=== PATIENT | male | born 1945 | race Caucasian/White ===

== ENCOUNTER → 2022-10-16 | Outpatient (CLI) | payer MEDICARE ==
[~2022-10-16] MED LIST: PROHANCE 279.3MG/ML 15ML VIAL ONE
== END ==
LOC: M PLAIMG 13:52
PROVIDERS: ATTEND Ophthalmology
DX: H53.9 Unspecified visual disturbance (principal)
CPT/HCPCS: 70543; 70553; A9576

== ENCOUNTER → 2023-02-14 | Outpatient (CLI) | payer MEDICARE ==
[~2023-02-14] MED LIST changes: +GASTROGRAFIN SOLUTION 30ML As Ordered ONE; -PROHANCE 279.3MG/ML 15ML VIAL ONE
== END ==
LOC: M RAD 13:19
PROVIDERS: ATTEND Internal Medicine Cardiovascular Disease
DX: I25.10 Atherosclerotic heart disease of native coronary artery without angina pectoris (principal); I73.9 Peripheral vascular disease, unspecified; E78.5 Hyperlipidemia, unspecified; Z72.0 Tobacco use
CPT/HCPCS: 93925; Q9963